=== PATIENT | female | born 1995 | race Caucasian/White ===

== ENCOUNTER 2017-06-10 11:19 | Emergency (ER) | payer OTHER ==
[~2017-06-10] VITALS: Ht 170.2 cm; Wt 81.8 kg
[~2017-06-10 11:19] MED LIST: INDOCIN25 MG PO; MACROBID100 MG PO; METHADOSE40 MG PO; MOTRIN800 MG PO; ORTHO EVRA PA1 PATCH PO; PRENATAL VITAM1 EAC3 PO; VALIUM5 MG PO
[2017-06-10 13:16] LABS: ADD MIUA? YES; BILIRUBIN NEGATIVE; BLOOD LARGE; COLOR AMBER ((YELLOW)); GLUCOSE (STRIP) NEGATIVE; KETONES NEGATIVE; LEUKOCYTES SMALL; NITRITE POSITIVE; PROTEIN (STRIP) 100
[2017-06-10 13:33] LABS: RED BLOOD CELLS RARE /HPF (0-5)
[2017-06-10 13:34] LABS: BACTERIA 3+ /HPF; EPITHELIAL CELLS 1+ /HPF; MUCUS NONE SEEN /LPF; UCUL ADDED? YES
[2017-06-10 14:26] LABS: HEMATOCRIT 44.3 % (36.0-46.0); MCH 26.8 PG (29.0-34.0); MCV 81.3 FL (83-99); MEAN PLAT.VOLUME 9.8 uM^3 (9.5-12.4); PLATELET COUNT 249 K/uL (156-360); RBC DIS.WIDTH-CV 12.1 % (11.8-14.6); RBC DIS.WIDTH-SD 35.8 % (39-53); RED BLOOD COUNT 5.45 M/uL (3.80-5.20); WHITE BLOOD COUNT 28.7 K/uL (4.1-10.2)
[2017-06-10 14:37] LABS: CHLORIDE 98 mEq/L (99-109); POTASSIUM 3.8 mEq/L (3.7-5.4); SODIUM 133 mEq/L (136-147)
[2017-06-10 14:39] LABS: GLUCOSE 96 mg/dL (70-99)
[2017-06-10 14:41] LABS: ANION GAP 13 MEQ/L (2-14); TOTAL BILIRUBIN 1.5 mg/dL (0.0-1.0)
[2017-06-10 14:43] LABS: ALKALINE PHOSPHATASE 114 IU/L (3-129); GFR ESTIMATE (CALCULATED) > 59 mL/min/
[2017-06-10 14:44] LABS: UREA NITROGEN (BUN) 11 mg/dL (9-23)
[2017-06-10 14:46] LABS: LIPASE 3 U/L (1.0-51.0)
[2017-06-10 14:52] LABS: QUANTITATIVE HCG < 4.0 MIU/ML
[2017-06-10] MEDS ORDERED: FLAGYL500 MG PO (19:47)
[2017-06-10] MEDS ORDERED: VIBRAMYCIN100 MG PO (19:47)
[2017-06-10] MEDS ORDERED: PERCOCET 5/31 TABLET PO (19:51)
[2017-06-10] MEDS ORDERED: ZOFRAN ODT4 MG PO (19:51)
[2017-06-10 20:42] VITALS: BP 120/65
[2017-06-11 13:46] LABS: CHLAMYDIA TRACHOMATIS POSITIVE; NEISSERIA GONORRHOEAE POSITIVE
[2017-06-12] MEDS ORDERED: METHADONE HCL40 MG PO (17:37)
== END 2017-06-10 20:44 | disposition home or self-care (01) ==
LOC: EME 11:19
PROVIDERS: Physician Assistant Medical
DX: N39.0 Urinary tract infection, site not specified (principal); N73.9 Female pelvic inflammatory disease, unspecified; F17.200 Nicotine dependence, unspecified, uncomplicated
CPT/HCPCS: 74176; 76856; 80053; 81003; 83690; 84702; 85027; 87077; 87086; 87186; 87210; 87491; 87591; 99281; 99285; J0696; J2270

== ENCOUNTER 2018-03-30 00:32 | Emergency (ER) | payer OTHER ==
[~2018-03-30] VITALS: Ht 167.6 cm; Wt 84.8 kg
[~2018-03-30 00:32] MED LIST changes: +FLAGYL500 MG PO; +METHADONE HCL40 MG PO; +PERCOCET 5/31 TABLET PO; +VIBRAMYCIN100 MG PO; +ZOFRAN ODT4 MG PO
[2018-03-30 01:35] LABS: SOURCE URINE
[2018-03-30 01:38] LABS: APPEARANCE CLEAR ((CLEAR)); BILIRUBIN NEGATIVE; BLOOD NEGATIVE; COLOR YELLOW ((YELLOW)); GLUCOSE (STRIP) NEGATIVE; KETONES NEGATIVE; LEUKOCYTES TRACE; NITRITE NEGATIVE; PROTEIN (STRIP) 30; SPECIFIC GRAVITY 1.027 (1.000-1.030)
[2018-03-30 01:40] LABS: BACTERIA NONE SEEN /HPF; EPITHELIAL CELLS RARE /HPF; MUCUS TRACE /LPF; WHITE BLOOD CELLS 0-5 /HPF (0-5)
[2018-03-30 02:40] VITALS: BP 131/82
[2018-04-01 15:20] LABS: CHLAMYDIA TRACHOMATIS NEGATIVE; NEISSERIA GONORRHOEAE NEGATIVE
== END 2018-03-30 02:44 | disposition home or self-care (01) ==
LOC: EME 00:32
PROVIDERS: Physician Assistant
DX: Z11.3 Encounter for screening for infections with a predominantly sexual mode of transmission (principal); F17.200 Nicotine dependence, unspecified, uncomplicated
CPT/HCPCS: 81003; 87491; 87591; 99281; 99284; J0696